=== PATIENT | female | born 1990 | race Caucasian/White ===

== ENCOUNTER 2019-03-11 03:50 | Emergency (ER) | payer MEDICAID ==
[~2019-03-11] VITALS: Ht 149.9 cm; Wt 58.0 kg
[2019-03-11] MEDS ORDERED: KETOROLAC 30MG/ML VIAL IM ONE (05:30)
[2019-03-11] MEDS ORDERED: HYDROCODONE/ACETAMINOPHEN 5/325MG TABLET PO ONE (06:00)
[2019-03-11 07:00] VITALS: BP 123/85
== END 2019-03-11 07:00 | disposition home or self-care (01) ==
LOC: ER 03:50
DX: M27.3 Alveolitis of jaws (principal); K08.409 Partial loss of teeth, unspecified cause, unspecified class; Z98.818 Other dental procedure status
CPT/HCPCS: 81025; 96372; 99283; J1885

== ENCOUNTER 2022-07-04 08:30 | Observation (INO) | payer MEDICAID ==
[~2022-07-04] VITALS: Ht 149.9 cm; Wt 66.7 kg
[2022-07-04] MEDS ORDERED: LACTATED RINGERS 1,000 ML IV SCH (09:10)
[2022-07-04] MEDS ORDERED: ONDANSETRON HCL 4MG TABLET PO PRN (09:30)
[2022-07-04] MEDS ORDERED: ONDANSETRON HCL 4MG/2ML INJ IV PRN (10:15)
[2022-07-04 10:33] LABS: CLARITY URINE CLEAR (CLEAR); COLOR URINE YELLOW (YELLOW); KETONES URINE 2+ (NEGATIVE); LEUKOCYTE ESTERASE URINE NEGATIVE (NEGATIVE); NITRITE URINE NEGATIVE (NEGATIVE); OCCULT BLOOD URINE NEGATIVE (NEGATIVE); PH URINE 8.5 (4.5-8.0); PROTEIN URINE NEGATIVE (NEGATIVE); SPECIFIC GRAVITY URINE 1.005 (1.005-1.030); UROBILINOGEN URINE 0.2 E.U./dL (0.2-1.0)
[2022-07-04 10:35] LABS: BASOPHILS % 0.3 % (0.0-2.0); EOSINOPHILS % 0.1 % (0.0-5.0); HEMATOCRIT. 34.9 % (36.0-48.0); HEMOGLOBIN. 11.8 g/dL (12.0-16.0); LYMPHOCYTES % 9.9 % (20.0-50.0); MEAN CORPUSCULAR HEMOGLOBIN 28.2 pg (28.0-32.0); MEAN CORPUSCULAR VOLUME 83.2 fL (81.0-99.0); MEAN PLATELET VOLUME 8.1 fl (7.4-10.4); MONOCYTES % 6.9 % (2.0-8.0); NEUTROPHILS % 82.8 % (40.0-76.0); PLATELET 275 x1000/uL (130-400); RED BLOOD CELL COUNT 4.19 mill/uL (4.2-5.4); RED CELL DISTRIBUTION WIDTH 14.4 % (11.6-14.6)
[2022-07-04 10:53] LABS: CHLORIDE 107 mEq/L (98-107)
[2022-07-04] MEDS ORDERED: PNV1TABL76 MT (11:27)
== END 2022-07-04 11:42 | disposition home or self-care (01) ==
LOC: 8 EST LDRP 08:30
PROVIDERS: ADMIT Obstetrics & Gynecology; ATTEND Obstetrics & Gynecology
DX: O21.2 Late vomiting of pregnancy (principal); O99.891 Other specified diseases and conditions complicating pregnancy; M54.9 Dorsalgia, unspecified; R10.30 Lower abdominal pain, unspecified; O62.9 Abnormality of forces of labor, unspecified; Z3A.35 35 weeks gestation of pregnancy
CPT/HCPCS: 36415; 59025; 76805; 76818; 80053; 81003; 85025; 96361; 96374; G0378; J2405; 96360; 99281

== ENCOUNTER 2022-07-21 20:24 | Inpatient (IN) | payer MEDICAID ==
[~2022-07-21] VITALS: Ht 149.9 cm; Wt 63.5 kg
[~2022-07-21 20:24] MED LIST: PNV1TABL76 MT
[2022-07-21] MEDS ORDERED: NALOXONE HCL 0.4 MG/ML 1ML VIAL IM PRN (22:15)
[2022-07-21] MEDS ORDERED: OXYTOCIN 30 UNITS/500ML NS PMX 500 ML IV SCH (22:15)
[2022-07-21] MEDS ORDERED: CARBOPROST TROMETHAMINE 250 MCG/ML AMPUL IM PRN (22:15)
[2022-07-21] MEDS ORDERED: LIDOCAINE HCL 1% 20ML VIAL (Pyxis) INJ INFIL SCH (22:15)
[2022-07-21] MEDS ORDERED: BUTORPHANOL TARTRATE 2 MG/ML VIAL IV PRN (22:15)
[2022-07-21] MEDS ORDERED: METHYLERGONOVINE MALEATE 0.2 MG/ML IM PRN (22:15)
[2022-07-21] MEDS ORDERED: MISOPROSTOL 100MCG TABLET VG SCH (22:15)
[2022-07-21] MEDS ORDERED: RHO(D) IMMUNE GLOBULIN 300 MCG/SYR IM NR (22:15)
[2022-07-21] MEDS ORDERED: AMPICILLIN 2GM in NS 100ML 100 ML IV NR ×2 (22:15→23:45)
[2022-07-21 23:55] LABS: BASOPHILS % 0.6 % (0.0-2.0); EOSINOPHILS % 0.2 % (0.0-5.0); HEMATOCRIT. 36.5 % (36.0-48.0); HEMOGLOBIN. 12.1 g/dL (12.0-16.0); LYMPHOCYTES % 16.1 % (20.0-50.0); MEAN CORPUSCULAR HEMOGLOBIN 27.5 pg (28.0-32.0); MEAN CORPUSCULAR VOLUME 83.3 fL (81.0-99.0); MEAN PLATELET VOLUME 8.8 fl (7.4-10.4); MONOCYTES % 6.5 % (2.0-8.0); NEUTROPHILS % 76.6 % (40.0-76.0); PLATELET 346 x1000/uL (130-400); RED BLOOD CELL COUNT 4.38 mill/uL (4.2-5.4); RED CELL DISTRIBUTION WIDTH 14.4 % (11.6-14.6)
[2022-07-21 23:58] LABS: CLARITY URINE CLEAR (CLEAR); COLOR URINE YELLOW (YELLOW); KETONES URINE NEGATIVE (NEGATIVE); LEUKOCYTE ESTERASE URINE NEGATIVE (NEGATIVE); NITRITE URINE NEGATIVE (NEGATIVE); OCCULT BLOOD URINE NEGATIVE (NEGATIVE); PH URINE 6.5 (4.5-8.0); PROTEIN URINE NEGATIVE (NEGATIVE); SPECIFIC GRAVITY URINE 1.008 (1.005-1.030); UROBILINOGEN URINE 0.2 E.U./dL (0.2-1.0)
[2022-07-22 00:07] LABS: INR 0.9; PARTIAL THROMBOPLASTIN TIME 25.9 sec (23.4-31.0); PROTHROMBIN TIME 9.7 sec (9.6-11.0)
[2022-07-22] MEDS: LACTATED RINGERS 1,000 ML IV SCH ×2 (00:22→06:53)
[2022-07-22 00:25] LABS: HEPATITIS B SURFACE ANTIGEN NEGATIVE
[2022-07-22 01:20] LABS: *AMPHETAMINES SCREEN URINE NEGATIVE (NEGATIVE); *BARBITURATES SCREEN URINE NEGATIVE (NEGATIVE); *BENZODIAZEPINES SCREEN URINE NEGATIVE (NEGATIVE); *COCAINE SCREEN URINE NEGATIVE (NEGATIVE); METHADONE URINE SCREEN NEGATIVE (NEGATIVE); OPIATES URINE SCREEN NEGATIVE (NEGATIVE); PHENCYCLIDINE URINE SCREEN NEGATIVE (NEGATIVE)
[2022-07-22 01:53] LABS: CANNABINOID URINE SCREEN PRESUMTIVE POSITIVE (NEGATIVE)
[2022-07-22] MEDS: MISOPROSTOL 100MCG TABLET VG PRN ×3 (04:05→19:37)
[2022-07-22] MEDS: AMPICILLIN 1,000 MG in SODIUM CHLORIDE 0.9% 50 ML IV SCH ×3 (05:41→19:44)
[2022-07-22] MEDS ORDERED: ONDANSETRON HCL 4MG/2ML INJ IV NR (06:15)
[2022-07-23] MEDS: LACTATED RINGERS 1,000 ML IV SCH (00:02)
[2022-07-23] MEDS: AMPICILLIN 1,000 MG in SODIUM CHLORIDE 0.9% 50 ML IV SCH (01:24)
[2022-07-23] MEDS ORDERED: IBUPROFEN 400MG TABLET PO PRN (03:00)
[2022-07-23] MEDS: IBUPROFEN 800MG TABLET PO PRN ×3 (05:04→19:44)
[2022-07-23 05:24] VITALS: BP 104/68
[2022-07-23 08:00] VITALS: BP 103/57
[2022-07-23] MEDS: PRENATAL VIT/FE FUMARATE/FA TABLET PO SCH (11:33)
[2022-07-23 16:00] VITALS: BP 98/47
[2022-07-23 20:00] VITALS: BP 103/66
[2022-07-24 04:00] VITALS: BP 108/62
[2022-07-24] MEDS: IBUPROFEN 800MG TABLET PO PRN (05:08)
[2022-07-24] MEDS ORDERED: IBUP-2030 PO (06:21)
[2022-07-24] MEDS ORDERED: FERR-63 PO (06:21)
[2022-07-24] MEDS ORDERED: FERROUS SULFATE 325MG TABLET PO SCH (07:30)
[2022-07-24 07:37] LABS: BASOPHILS % 0.5 % (0.0-2.0); EOSINOPHILS % 1.9 % (0.0-5.0); HEMOGLOBIN. 12.2 g/dL (12.0-16.0); LYMPHOCYTES % 25.5 % (20.0-50.0); MEAN CORPUSCULAR HEMOGLOBIN 28.1 pg (28.0-32.0); MEAN CORPUSCULAR VOLUME 83.2 fL (81.0-99.0); MEAN PLATELET VOLUME 8.6 fl (7.4-10.4); MONOCYTES % 8.6 % (2.0-8.0); NEUTROPHILS % 63.5 % (40.0-76.0); PLATELET 294 x1000/uL (130-400); RED BLOOD CELL COUNT 4.33 mill/uL (4.2-5.4); RED CELL DISTRIBUTION WIDTH 14.8 % (11.6-14.6)
[2022-07-24 07:45] VITALS: BP 90/45
[2022-07-24] MEDS: PRENATAL VIT/FE FUMARATE/FA TABLET PO SCH (08:00)
[2022-07-29 05:09] LABS: CANNABINOID CONFIRMATION URINE Positive (.)
== END 2022-07-24 11:50 | disposition home or self-care (01) | DRG 560 ==
LOC: 8 EST LDRP 20:24 → OBSVTOIN 20:24 → 8EST 07-23 04:37
PROVIDERS: ADMIT Obstetrics & Gynecology; ATTEND Obstetrics & Gynecology
PROC: 10E0XZZ Delivery of Products of Conception, External Approach (ICD-10-PCS; principal; 2022-07-23)
PROC: 3E0R3BZ Introduction of Anesthetic Agent into Spinal Canal, Percutaneous Approach (ICD-10-PCS; 2022-07-23)
PROC: 00HU33Z Insertion of Infusion Device into Spinal Canal, Percutaneous Approach (ICD-10-PCS; 2022-07-23)
DX: O26.62 Liver and biliary tract disorders in childbirth (principal); Z37.0 Single live birth; K83.1 Obstruction of bile duct; O99.324 Drug use complicating childbirth; O69.81X0 Labor and delivery complicated by cord around neck, without compression, not applicable or unspecified; Z20.822 Contact with and (suspected) exposure to COVID-19; Z3A.37 37 weeks gestation of pregnancy; F12.10 Cannabis abuse, uncomplicated; Z83.3 Family history of diabetes mellitus
CPT/HCPCS: 36415; 76805; 76818; 80305; 80349; 81003; 85025; 86592; 86703; 86762; 86850; 86900; 87340; 87426; 99281; J0290; J0595; J2405; A4315; J2590